=== PATIENT | female | born 1995 | race Caucasian/White ===

== ENCOUNTER 2020-10-04 08:27 | Outpatient (REF) | payer OTHER, SELFPAY ==
--- NOTE | ~2020-10-04 | XR_ITS ---
EXAMINATION: XR FOOT, LEFT CLINICAL INFORMATION: Left foot pain COMPARISON: None TECHNIQUE: AP, lateral, and oblique views of the left foot. FINDINGS: There is soft tissue swelling laterally and comminuted fracture at the base of the fifth metatarsal. No other fractures are seen. XR/XR foot LT min 3V IMPRESSION: Comminuted fracture base of fifth metatarsal.
== END 2020-10-04 08:28 | disposition home or self-care (01) ==
LOC: HO.HOSX 08:27
PROVIDERS: PCP Internal Medicine; Visit Provider Physician Assistant
DX: S92.352A Displaced fracture of fifth metatarsal bone, left foot, initial encounter for closed fracture (principal)
CPT/HCPCS: 73630; 99202

== ENCOUNTER 2020-11-15 08:00 | Outpatient (REF) | payer OTHER, SELFPAY ==
--- NOTE | ~2020-11-15 | XR_ITS ---
EXAMINATION: XR FOOT, LEFT CLINICAL INFORMATION: Left foot pain. COMPARISON: Left foot radiographs dated 10/04/2020. TECHNIQUE: AP, lateral, and oblique views of the left foot. FINDINGS: Redemonstration of a comminuted fracture at the base of the 5th metatarsal with interval cortication of the resultant fracture fragments. No significant osseous bridging. No osseous erosion. No abnormal soft tissue calcification. XR/XR foot LT min 3V IMPRESSION: Comminuted fractures at the base of the 5th metatarsal in unchanged anatomic alignment with interval cortication of the fracture fragments.
== END 2020-11-15 08:01 | disposition home or self-care (01) ==
LOC: HO.HOSX 08:00
PROVIDERS: Visit Provider Physician Assistant
DX: S92.352D Displaced fracture of fifth metatarsal bone, left foot, subsequent encounter for fracture with routine healing (principal)
CPT/HCPCS: 73630; 99212

== ENCOUNTER 2021-09-04 12:43 | Emergency (ER) | payer OTHER, SELFPAY | END 2021-09-04 13:54 | disposition left against medical advice (07) | PROVIDERS: Emergency Provider Emergency Medicine; PCP Internal Medicine | DX: F10.129 Alcohol abuse with intoxication, unspecified (principal); Y90.9 Presence of alcohol in blood, level not specified ==